=== PATIENT | male | born 1980 | race African-American/Black ===

== ENCOUNTER 2018-06-18 22:27 | Emergency (ER) | payer SELFPAY ==
[~2018-06-18] VITALS: Ht 175.3 cm; Wt 97.1 kg
[2018-06-18 22:52] VITALS: BP 151/84; Ht 175.3 cm; Wt 97.1 kg
== END 2018-06-18 23:49 | disposition home or self-care (01) ==
LOC: ED 22:27
DX: R51 Headache (principal); H53.149 Visual discomfort, unspecified
CPT/HCPCS: J1885; J8597